=== PATIENT | male | born 1980 | race Caucasian/White ===

== ENCOUNTER 2024-07-27 13:23 | Outpatient (REF) | payer OTHER, SELFPAY ==
--- OUTSIDE RECORDS SUMMARY | 2024-07-29 11:41 | XMS_ITS | Clinical Summary ---
Author Organization [facility] Address [address] [place] [address] Phone Care Team Providers Care Track Repair Laborer Name Role Phone Frdeo Laureano MD Primary Care Provider [phone] Encounters Date Type Department Care Team Description 06/22/2024 8:44 AM EST - 06/22/2024 11:59 PM EST Hospital Encounter [facility] Pulmonary [address] [place] [address] Shortness of breath Discharge Disposition: Home or Self Care from Last 3 Months Medical History Medical History Date Comments Family history of cardiovascular disease DX:Family history of cardiovascular disease Essential hypertension DX:Essent ial hypertension Hyperlipidemia DX:Hyperlipidemi a Family History Medical History Relation Name Comments Coronary artery disease Father Diabetes Father Relation Name Status Comments Father Alive Social History Tobacco Use Types Packs/Day Years Used Date Smoking Tobacco: Never Smokeless Tobacco: Never Alcohol Use Standard Drinks/Week Comments Yes 0 (1 standard drink = 0.6 oz pur e alcohol) Sex and Gender Information Value Date Recorded Sex Assigned at Not on file Legal Sex Male 12:14 PM EST Gender Identity Not on file Sexual Orientation Not on file Obstetrics History Last Filed Vital Signs Vital Sign Reading Time Taken Comments Blood Pressure 130/80 08/13/2022 9:17 AM EST Sitting L Arm Pulse 59 08/13/2022 9:17 AM EST Temperature - - Respiratory Rate - - Oxygen Saturation - - Inhaled Oxygen Concentration - - Weight 89.7 kg (197 lb 12.8 oz) 08/13/2022 9:17 AM EST Height 182.9 cm (6') 08/13/2022 9:17 AM EST Body Mass Index 26.83 08/13/2022 9:17 AM EST Plan of Treatment Health Maintenance Due Date Last Done Comments DTaP,Tdap,and Td Vaccines (1 - Tdap) 10/16/1999 Hepatitis B Vaccines (1 of 3 - 19+ 3-dose series) 10/16/1999 Cholesterol Screening (Lipid Panel) 05/15/2022 Depression Screening 05/15/2022 HIV Screening 05/15/2022 Hepatitis C Screening 05/15/2022 Social Influencers of Health Screening 05/15/2022 COVID-19 Vaccine ( - 2023-2 5 season) 2024 Influenza Vaccine (#1) 2024 HIB Vaccines Aged Out No longer eligi ble based on patient's age to complete this topic HPV Vaccines Aged Out No longer eligi ble based on patient's age to complete this topic Hepatitis A Vaccines Aged Out No long er eligible based on patient's age to complete this topic IPV Vaccines Aged Out No longer eligi ble based on patient's age to complete this topic MMR Vaccines Aged Out No longer eligi ble based on patient's age to complete this topic Meningococcal ACWY Vaccine Aged Out N o longer eligible based on patient's age to complete this topic Meningococcal B Vacine Aged Out No lo nger eligible based on patient's age to complete this topic Pneumococcal Vaccine: Pediat rics (0 to 5 Years) and At-Risk Patients (6 to 64 Years) Aged Out No longer eligible b ased on patient's age to complete this topic RSV Immunization Patients Un eda 20 months Aged Out No longer eligible b ased on patient's age to complete this topic Varicella Vaccines Aged Out No longer eligible based on patient's age to complete this topic Procedures Procedure Name Priority Date/Time Associated Diagnosis Comments HC SPIROMETRY BRONCHODILATION RESPONSIVENESS PRE/POST BRONCHODILATOR ADMINISTRATION Routine 06/22/2024 9:36 AM EST Shortness of breath from Last 3 Months Results * Pulmonary function testing: Carbon Monoxide Diffusing Capacity, Nitrogen Wash Out, Spirometry with Bronchodilator (06/22/2024 9:36 AM EST) Impressions Carol Jolley MD - 06/22/2024 9:44 AM EST FEV1/FVC 70%. FEV1 3.15 at 81%. FVC 86%. No bronchodilator response. ?? TLC 80%. RV 57%. DLCO 99%. Mild obstruction. ??No restriction. ??No decrease in diff Fredo Laureano MD PFT ORDERABLES Final Result from Last [address] [place] [address] Care Teams Track Repair Laborer Relationship Specialty Start Date End Date Fredo Laureano MD [address] [place] [address] PCP - General Internal Medicine 06/22/24
== END 2024-07-27 13:24 | disposition home or self-care (01) ==
LOC: HO.LAB 13:23
PROVIDERS: PCP Internal Medicine; Visit Provider Hospitalist
DX: Z13.89 Encounter for screening for other disorder (principal)

== ENCOUNTER → 2024-07-27 14:17 | Outpatient (AMB) | payer OTHER, SELFPAY ==
--- NOTE | 2024-07-27 13:26 | MHC.OFFVIS ---
Vital Signs 07/27/24 13:29 Height 6 ft 1 in Weight 218 lb 4.122 oz BMI 28.8 BP 130/82 Blood Pressure Location Rt brachial Position Sitting Pulse 69 Pulse Source Pulse Oximeter Pulse Oximetry (%) 96 Oxygen Delivery Method Room Air Intake Visit Reasons: Asthma Allergies No Known Allergies Allergy (Verified 07/27/24 13:32) HPI Comments Details: The patient is here for pulmonary evaluation. The patient is a 43-year-old gentleman with history of childhood asthma who apparently was in his usual state health until last winter when he was exposed to a fire extinguisher discharge. He had difficulty breathing for couple weeks after that. The night he noticed that he was not doing as well with the breathing. The patient has a rescue inhaler. Back in September he started developing worsening chest tightness and wheezing. He had a chest x-ray which I personally reviewed without any acute disease. He was given prednisone. Also albuterol. Recently he was started on Symbicort which she seems to be tolerating well although did getting some hoarseness that bothersome specially at work. As far as other exposures he does have ducts in his backyard. In addition to that the patient does working a somnolent and has significant amount of exposure throughout the day. Primarily working with local [employer] and hard[employer]. Not so much exotic [employer]. [facility] Medical History (Updated 07/27/24 @ 23:05 by Gregg Borjas MD) Chronic rhinitis Reactive airways dysfunction syndrome Asthma Allergies Social History (Updated 07/27/24 @ 13:32 by Aislinn Oliva CMA) Patient Tobacco Use Status: Never used Tobacco Review of Systems Const Reports daytime sleepiness and Reports snoring Eyes Reports no additional complaints ENT Reports nasal congestion and Reports nasal discharge Resp Reports cough, Reports snoring and Reports wheezing GI Reports no additional complaints Musc Reports no additional complaints Skin/Breast Denies rash Neuro Reports no additional complaints Endo Reports no additional complaints Guillermo/Lymph Reports no additional complaints Aller/Immun Reports wheezing Physical Exam Vital Signs: Last Vital Signs Pulse 69 07/27/24 13:29 BP 130/82 07/27/24 13:29 Pulse Ox 96 07/27/24 13:29 Oxygen Delivery Method Room Air 07/27/24 13:29 BMI result Body Mass Index 28.8 Const General: comfortable Neck Neck: Yes supple Chest Chest palpation & inspection: normal inspection of the chest Resp Effort & Inspection: normal respiratory effort Auscultation: wheezes and diminished lung sounds Cardio Heart sounds: S1 normal heart sound present and S2 normal heart sound present GI Palpation (GI): Soft to palpation Skin General skin exam: no rashes or lesions noted Extrem General: Yes no clubbing, cyanosis or edema Assessment & Plan Assessment & Plan (1) KATRIN (obstructive sleep apnea): Code(s): G47.33 - Obstructive sleep apnea (adult) (pediatric) Category: Medical (2) Reactive airways dysfunction syndrome: Code(s): J68.3 - Other acute and subacute respiratory conditions due to chemicals, gases, fumes and vapors Category: Medical (3) Asthma: Code(s): J45.909 - Unspecified asthma, uncomplicated Category: Medical Qualifiers: Asthma severity: moderate Asthma persistence: persistent Asthma complication type: uncomplicated Qualified Code(s): J45.40 - Moderate persistent asthma, uncomplicated (4) Allergies: Code(s): T78.40XA - Allergy, unspecified, initial encounter Category: Medical Qualifiers: Encounter type: initial encounter Qualified Code(s): T78.40XA - Allergy, unspecified, initial encounter (5) Chronic rhinitis: Code(s): J31.0 - Chronic rhinitis Category: Medical Plan continue Symbicort, will add Spacer Start Singulair PM BO as needed Bloodwork and allergy testing Alpha 1 testitng CXR non diagnsotic, consider CT chest consider home PSG F/U 2 months Orders: Orders Immunoglobulins,IgG IgA IgM Today G47.33 - Obstructive sleep apnea (adult) (pediatric), J31.0 - Chronic rhinitis, J45.909 - Unspecified asthma, uncomplicated, J68.3 - Other acute and subacute respiratory conditions due to chemicals, gases, fumes and vapors, T78.40XA - Allergy, unspecified, initial encounter Immunoglobulin E Today G47.33 - Obstructive sleep apnea (adult) (pediatric), J31.0 - Chronic rhinitis, J45.909 - Unspecified asthma, uncomplicated, J68.3 - Other acute and subacute respiratory conditions due to chemicals, gases, fumes and vapors, T78.40XA - Allergy, unspecified, initial encounter Hypersensitive Pneumonitis Prf Today G47.33 - Obstructive sleep apnea (adult) (pediatric), J31.0 - Chronic rhinitis, J45.909 - Unspecified asthma, uncomplicated, J68.3 - Other acute and subacute respiratory conditions due to chemicals, gases, fumes and vapors, R91.8 - Other nonspecific abnormal finding of lung field, T78.40XA - Allergy, unspecified, initial encounter Alpha 1 Anti-trypsin Today G47.33 - Obstructive sleep apnea (adult) (pediatric), J31.0 - Chronic rhinitis, J45.909 - Unspecified asthma, uncomplicated, J68.3 - Other acute and subacute respiratory conditions due to chemicals, gases, fumes and vapors, T78.40XA - Allergy, unspecified, initial encounter Complete Blood Count Auto Diff Today G47.33 - Obstructive sleep apnea (adult) (pediatric), J31.0 - Chronic rhinitis, J45.909 - Unspecified asthma, uncomplicated, J68.3 - Other acute and subacute respiratory conditions due to chemicals, gases, fumes and vapors, T78.40XA - Allergy, unspecified, initial encounter Resp Allergy Profile Region I Today G47.33 - Obstructive sleep apnea (adult) (pediatric), J31.0 - Chronic rhinitis, J45.909 - Unspecified asthma, uncomplicated, J68.3 - Other acute and subacute respiratory conditions due to chemicals, gases, fumes and vapors, R91.1 - Solitary pulmonary nodule, T78.40XA - Allergy, unspecified, initial encounter Basic Metabolic Panel Today G47.33 - Obstructive sleep apnea (adult) (pediatric), J31.0 - Chronic rhinitis, J45.909 - Unspecified asthma, uncomplicated, J68.3 - Other acute and subacute respiratory conditions due to chemicals, gases, fumes and vapors, T78.40XA - Allergy, unspecified, initial encounter Erythrocyte Sedimentation Rate Today G47.33 - Obstructive sleep apnea (adult) (pediatric), J31.0 - Chronic rhinitis, J45.909 - Unspecified asthma, uncomplicated, J68.3 - Other acute and subacute respiratory conditions due to chemicals, gases, fumes and vapors, T78.40XA - Allergy, unspecified, initial encounter Medications: New montelukast (Singulair) 10 mg PO BEDTIME 30 tabs 11RF 30 days J45.909 - Unspecified asthma, uncomplicated inhalational spacing device (Aerochamber MV spacer) As directed 1 ea 0RF Coding Level of Care Code New Pt Level 4 (64558) Diagnoses KATRIN (obstructive sleep apnea) G47.33 Reactive airways dysfunction syndrome J68.3 Moderate persistent asthma without complication J45.40 Asthma severity: moderate Asthma persistence: persistent Asthma complication type: uncomplicated Allergy, initial encounter T78.40XA Encounter type: initial encounter Chronic rhinitis J31.0 Time Spent (min) 60
[2024-07-27 13:29] VITALS: BP 130/82; PULSE 69; O2SAT 96; BMI 28.8
== END | disposition home or self-care (01) ==
PROVIDERS: PCP Internal Medicine; Visit Provider Hospitalist
DX: G47.33 Obstructive sleep apnea (adult) (pediatric) (principal); J68.3 Other acute and subacute respiratory conditions due to chemicals, gases, fumes and vapors; J45.40 Moderate persistent asthma, uncomplicated; T78.40XA Allergy, unspecified, initial encounter; J31.0 Chronic rhinitis
CPT/HCPCS: 99204

== ENCOUNTER 2024-07-29 10:10 | Outpatient (REF) | payer OTHER, SELFPAY ==
[2024-07-29 10:23] LABS: MANUAL DIFF FLAG NO
[2024-07-29 10:54] LABS: Basophils Percent Auto 0.4 % (0-2); Eosinophils Absolute Auto 0.2 X10*3/uL (0.0-0.4); Eosinophils Percent Auto 3.6 % (0-4); Hematocrit 43.7 % (42.0-52.0); Hemoglobin 14.5 g/dl (14.0-18.0); Imm Gran Abs Auto 0.01 X10*3/uL (0.00-0.03); Imm Gran Pct Auto 0.2 % (0.0-0.4); Lymphocytes Absolute Auto 1.9 X10*3/uL (1.2-4.9); Lymphocytes Percent Auto 37.6 % (20-40); Mean Corpuscular HGB Conc 33.2 g/dl (31.0-36.0); Mean Corpuscular Volume 99.5 fL (80.0-98.0); Monocytes Absolute Auto 0.4 X10*3/uL (0.1-1.2); Neutrophils Absolute Auto 2.6 x10*3/uL (2.0-8.3); Neutrophils Percent Auto 51.2 % (45-73); Platelet Count 167 X10*3/uL (160-400); Red Blood Count 4.39 X10*6/uL (4.60-5.80); Red Cell Distribution Width 12.7 % (11.0-16.0)
[2024-07-29 11:13] LABS: Anion Gap 11 (12-20); Blood Urea Nitrogen 18 mg/dL (9-16); Calcium 9.5 mg/dL (8.4-10.2); Carbon Dioxide 27 mmol/L (22-29); Chloride 106 mmol/L (96-108); Estimated Glomerular Filt Rate > 60; Glucose Random 106 mg/dL (60-115); Potassium 4.4 mmol/L (3.3-5.1); Sodium 140 mmol/L (135-145)
[2024-07-29 11:34] LABS: Erythrocyte Sedimentation Rate 2 MM/HR (0-15)
--- OUTSIDE RECORDS SUMMARY | 2024-07-29 12:03 | XMS_ITS | Clinical Summary ---
Author Organization [facility] Address [address] [place] [address] Phone Care Team Providers Care Drawing Machine Operator Name Role Phone Fredo Laureano MD Primary Care Provider [phone] Encounters Date Type Department Care Team Description 06/22/2024 8:44 AM EST - 06/22/2024 11:59 PM EST Hospital Encounter [facility] Pulmonary [address] [place] [address] Shortness of breath Discharge Disposition: [...] Final Result from Last [address] [place] [place] [address] Care Teams Drawing Machine Operator Relationship Specialty Start Date End Date Fredo Laureano MD [address] [place] [address] PCP - General Internal Medicine 06/22/24
[2024-07-30 09:04] LABS: Alpha 1 Anti-trypsin 118 mg/dL (83-199)
[2024-08-04 10:58] LABS: Class Alternaria alternata 0; Class Aspergillus fumigatus 0; Class Bermuda Grass 0; Class Birch 0; Class Cat Dander 0; Class Cladosporium herbarum 0; Class Cockroach 0/1; Class Common Ragweed 0; Class Cottonwood 0; Class Derm. pterony 1; Class Dermatophagoides farinae 1; Class Dog Dander 0; Class Elm 0; Class Maple Box Elder 0; Class Mountain Cedar 0; Class Mouse Urine Protein 0; Class Mugwort 0; Class Oak 0; Class Penicillium crysogenum 0; Class Rough Pigweed 0; Class Sheep Sorrel 0; Class Sycamore 0; Class Timothy Grass 0; Class Walnut Tree 0; Class White Ash 0; Class White Mulberry 0; D001 IgE D pteronyssinus 0.51 kU/L; D002 - IgE D farinae 0.46 kU/L; E001 - IgE Cat Dander <0.10 kU/L; E005 - IgE Dog Dander <0.10 kU/L; E072-IgE Mouse Urine <0.10 kU/L; G002 IgE Bermuda Grass <0.10 kU/L; G006 - IgE Timothy Grass <0.10 kU/L; I006-IgE Cockroach, German 0.12 kU/L; Immunoglobulin E 65 kU/L (<OR=114); M001 IgE Penicillium chrysogen <0.10 kU/L; M002 - IgE Cladosporium herbar <0.10 kU/L; M003 - IgE Aspergillus fumigat <0.10 kU/L; M006 - IgE Alternaria alternat <0.10 kU/L; T001 IgE Maple/Box Elder <0.10 kU/L; T003 IgE Common Silver Birch <0.10 kU/L; T006 - IgE Cedar, Mountain <0.10 kU/L; T007 - IgE Oak, White <0.10 kU/L; T008 IgE Elm, American <0.10 kU/L; T010 - IgE Walnut <0.10 kU/L; T011 - IgE Maple Leaf Sycamore <0.10 kU/L; T014 - IgE Cottonwood <0.10 kU/L; T015 - IgE Ash, White <0.10 kU/L; T070 - IgE White Mulberry <0.10 kU/L; W001 - IgE Ragweed, Short <0.10 kU/L; W006 - IgE Mugwort <0.10 kU/L; W014 IgE Pigweed, Common <0.10 kU/L; W018 IgE Sheep Sorrel <0.10 kU/L
[2024-08-05 15:04] LABS: IgA 301 mg/dL (47-310); IgG 1380 mg/dL (600-1640); IgM 64 mg/dL (50-300)
[2024-08-06 10:59] LABS: Asperg fumigatus Precip Abs NEGATIVE (NEGATIVE); Micropoly faeni Abs NEGATIVE (NEGATIVE); Pigeon serum Abs NEGATIVE (NEGATIVE); Saccharo pora viridis Abs NEGATIVE (NEGATIVE); Thermo candidus Abs NEGATIVE (NEGATIVE); Thermoa vulgaris #1 NEGATIVE (NEGATIVE)
== END 2024-07-29 10:11 | disposition home or self-care (01) ==
LOC: HO.LAB 10:10
PROVIDERS: Visit Provider Hospitalist
DX: J31.0 Chronic rhinitis (principal); R91.1 Solitary pulmonary nodule; G47.33 Obstructive sleep apnea (adult) (pediatric); J68.3 Other acute and subacute respiratory conditions due to chemicals, gases, fumes and vapors; J45.909 Unspecified asthma, uncomplicated; R91.8 Other nonspecific abnormal finding of lung field
CPT/HCPCS: 36415; 80048; 82103; 82784; 82785; 85025; 85652; 86003; 86331; 86606; 86609

== ENCOUNTER 2024-09-16 08:30 | Outpatient (AMB) | payer OTHER, SELFPAY ==
--- NOTE | 2024-09-16 08:31 | A.OFFVIS_ITS ---
Vital Signs 09/16/24 08:32 Height 6 ft 1 in Weight 220 lb 7.396 oz BMI 29.1 BP 118/76 Blood Pressure Location Rt brachial Position Sitting Pulse 60 Pulse Source Pulse Oximeter Pulse Oximetry (%) 99 Oxygen Delivery Method Room Air Intake Visit Reasons: Asthma Allergies No Known Allergies Allergy (Verified 09/16/24 08:35) HPI Comments Details: The patient is a 43-year-old gentleman with history of childhood asthma who apparently was in his usual state health until last winter when he was exposed to a fire extinguisher discharge. He had difficulty breathing for couple weeks after that. The night he noticed that he was not doing as well with the breathing. The patient has a rescue inhaler. Back in September he started developing worsening chest tightness and wheezing. He had a chest x-ray which I personally reviewed without any acute disease. He was given prednisone. Also albuterol. Recently he was started on Symbicort which she seems to be tolerating well although did getting some hoarseness that bothersome specially at work. As far as other exposures he does have ducts in his backyard. In addition to that the patient does working a somnolent and has significant amount of exposure throughout the day. Primarily working with local [employer] and hard[employer]. Not so much exotic [employer]. 09/16/2024 the patient is here for pulmonary follow-up visit. Overall the patient has been doing well. He has been tolerating the Symbicort with spacer and also the addition of the Singulair. He has not been using his rescue inhalers often. Although he still uses it. He did have 1 situation where his daughter was having surgery and he did get a little anxious and stressed and he was using his inhaler frequently. Unfortunately since he has been feeling better he thought about smoking marijuana. I did emphasize importance to avoid any inhaled toxins her feels that can potentially hinder his respiratory and airway capacity. His respiratory exam is reassuring. We did look at his blood work. His allergy testing only positive for dust mites. He can consider getting some budding for that. In addition to that the rest of blood work was reassuring. Today we did do an alpha-1 test. Will see what his results come out to be. For now the patient is doing well I did provide him with a peak flow meter so he can assess his airway capacity prior to using his rescue inhaler whenever he feels short of breath. He did get a peak flow of 600 mL/sec. This is very good. Therefore, he will monitor closely peak flows. If he is noticing that he is using his rescue inhaler more than 3 times a week or if he has noticing that his peak flow meters are going down he can always call and I can send him a long-acting muscarinic antagonist to take along with Symbicort. Otherwise patient will follow-up in 6-8 months. [facility] Medical History (Updated 07/27/24 @ 23:05 by Gregg Borjas MD) Chronic rhinitis Reactive airways dysfunction syndrome Asthma Allergies Social History Patient Tobacco Use Status: Never used Tobacco Review of Systems Const Reports daytime sleepiness and Reports snoring Eyes Reports no additional complaints ENT Reports nasal congestion and Reports nasal discharge Resp Reports cough, Reports snoring and Reports wheezing GI Reports no additional complaints Musc Reports no additional complaints Skin/Breast Denies rash Neuro Reports no additional complaints Endo Reports no additional complaints Guillermo/Lymph Reports no additional complaints Aller/Immun Reports wheezing Physical Exam Vital Signs: Last Vital Signs Pulse 60 09/16/24 08:32 BP 118/76 09/16/24 08:32 Pulse Ox 99 09/16/24 08:32 Oxygen Delivery Method Room Air 09/16/24 08:32 BMI result Body Mass Index 29.1 Const General: comfortable Neck Neck: Yes supple Chest Chest palpation & inspection: normal inspection of the chest Resp Effort & Inspection: normal respiratory effort Auscultation: clear to auscultation bilaterally and no wheezes Cardio Heart sounds: S1 normal heart sound present and S2 normal heart sound present GI Palpation (GI): Soft to palpation Skin General skin exam: no rashes or lesions noted Extrem General: Yes no clubbing, cyanosis or edema Assessment & Plan Assessment & Plan (1) KATRIN (obstructive sleep apnea): Code(s): G47.33 - Obstructive sleep apnea (adult) (pediatric) Category: Medical (2) Reactive airways dysfunction syndrome: Code(s): J68.3 - Other acute and subacute respiratory conditions due to chemicals, gases, fumes and vapors Category: Medical (3) Asthma: Code(s): J45.909 - Unspecified asthma, uncomplicated Category: Medical Qualifiers: Asthma complication type: uncomplicated Asthma persistence: persistent Asthma severity: moderate Qualified Code(s): J45.40 - Moderate persistent asthma, uncomplicated (4) Allergies: Code(s): T78.40XA - Allergy, unspecified, initial encounter Category: Medical Qualifiers: Encounter type: initial encounter Qualified Code(s): T78.40XA - Allergy, unspecified, initial encounter (5) Chronic rhinitis: Code(s): J31.0 - Chronic rhinitis Category: Medical Plan continue Symbicort, Spacer continue Singulair PM BO as needed Alpha 1 testitng consider home PSG F/U 6 months Coding Level of Care Code Est Pt Level 4 (89395) Diagnoses KATRIN (obstructive sleep apnea) G47.33 Reactive airways dysfunction syndrome J68.3 Moderate persistent asthma without complication J45.40 Asthma complication type: uncomplicated Asthma persistence: persistent Asthma severity: moderate Allergy, initial encounter T78.40XA Encounter type: initial encounter Chronic rhinitis J31.0 Time Spent (min) 17
[2024-09-16 08:32] VITALS: BP 118/76; PULSE 60; O2SAT 99; BMI 29.1
--- OUTSIDE RECORDS SUMMARY | 2024-09-16 08:49 | XMS_ITS | Clinical Summary ---
Author Organization [facility] Address [address] [place] [address] Phone Care Team Providers Care Clinical Pharmacy Coordinator Name Role Phone Fredo Laureano MD Primary Care Provider [phone] Encounters Date Type Department Care Team Description 06/22/2024 8:44 AM EST - 06/22/2024 11:59 PM EST Hospital Encounter [facility] Pulmonary [address] [place] [address] Shortness of breath Discharge Disposition: [...] Final Result from Last [address] [place] [address] Care Teams Clinical Pharmacy Coordinator Relationship Specialty Start Date End Date Fredo Laureano MD [address] [place] [address] PCP - General Internal Medicine 06/22/24
== END 2024-09-16 08:59 | disposition home or self-care (01) ==
PROVIDERS: PCP Internal Medicine; Visit Provider Hospitalist
DX: G47.33 Obstructive sleep apnea (adult) (pediatric) (principal); J68.3 Other acute and subacute respiratory conditions due to chemicals, gases, fumes and vapors; J45.40 Moderate persistent asthma, uncomplicated; T78.40XA Allergy, unspecified, initial encounter; J31.0 Chronic rhinitis
CPT/HCPCS: 99214

== ENCOUNTER 2025-03-22 08:31 | Outpatient (AMB) | payer OTHER, SELFPAY ==
--- NOTE | 2025-03-22 08:36 | MHC.OFFVIS ---
Vital Signs 03/22/25 08:37 Height 6 ft 1 in Weight 223 lb 12.307 oz BMI 29.5 BP 100/52 L Blood Pressure Location Lt brachial Position Sitting Pulse 61 Pulse Source Pulse Oximeter Pulse Oximetry (%) 96 Oxygen Delivery Method Room Air Intake Visit Reasons: Asthma Production Support Consultant Required: No Allergies No Known Allergies Allergy (Verified 03/22/25 08:40) HPI Comments Details: The patient is a 44-year-old gentleman with history of childhood asthma who apparently was in his usual state health until last winter when he was exposed to a fire extinguisher discharge. He had difficulty breathing for couple weeks after that. The night he noticed that he was not doing as well with the breathing. The patient has a rescue inhaler. Back in September he started developing worsening chest tightness and wheezing. He had a chest x-ray which I personally reviewed without any acute disease. He was given prednisone. Also albuterol. Recently he was started on Symbicort which she seems to be tolerating well although did getting some hoarseness that bothersome specially at work. As far as other exposures he does have ducts in his backyard. In addition to that the patient does working a somnolent and has significant amount of exposure throughout the day. Primarily working with local [employer] and hard[employer]. Not so much exotic [employer]. 09/16/2024 the patient is here for pulmonary follow-up visit. Overall the patient has been doing well. He has been tolerating the Symbicort with spacer and also the addition of the Singulair. He has not been using his rescue inhalers often. Although he still uses it. He did have 1 situation where his daughter was having surgery and he did get a little anxious and stressed and he was using his inhaler frequently. Unfortunately since he has been feeling better he thought about smoking marijuana. I did emphasize importance to avoid any inhaled toxins her feels that can potentially hinder his respiratory and airway capacity. His respiratory exam is reassuring. We did look at his blood work. His allergy testing only positive for dust mites. He can consider getting some budding for that. In addition to that the rest of blood work was reassuring. Today we did do an alpha-1 test. Will see what his results come out to be. For now the patient is doing well I did provide him with a peak flow meter so he can assess his airway capacity prior to using his rescue inhaler whenever he feels short of breath. He did get a peak flow of 600 mL/sec. This is very good. Therefore, he will monitor closely peak flows. If he is noticing that he is using his rescue inhaler more than 3 times a week or if he has noticing that his peak flow meters are going down he can always call and I can send him a long-acting muscarinic antagonist to take along with Symbicort. Otherwise patient will follow-up in 6-8 months. 03/22/2025 the patient is here for pulmonary follow-up visit. Overall the patient is doing well. He continues uses Symbicort twice a day. Has not had to use his rescue inhaler. Has continue with the Singulair. His alpha-1 testing was normal. The patient did have a sleep study done as [facility]. She was diagnosed with [id number]-[id number] sleep apnea. He is going to start CPAP soon. The patient does have significant snoring. In the CPAP will be very effective and helpful. No recent imaging to review. His last chest x-ray was back in 2023 without any acute disease. The patient does have exposures. Therefore have him come back in a year with a chest x-ray. If he has not issues prior to this she can always call for an earlier assessment. [facility] Medical History (Updated 07/27/24 @ 23:05 by Gregg Borjas MD) Chronic rhinitis Reactive airways dysfunction syndrome Asthma Allergies Social History Patient Tobacco Use Status: Never used Tobacco Review of Systems Const Reports daytime sleepiness and Reports snoring Eyes Reports no additional complaints ENT Reports nasal congestion and Reports nasal discharge Resp Reports cough, Reports snoring and Reports wheezing GI Reports no additional complaints Musc Reports no additional complaints Skin/Breast Denies rash Neuro Reports no additional complaints Endo Reports no additional complaints Guillermo/Lymph Reports no additional complaints Aller/Immun Reports wheezing Physical Exam Vital Signs: Last Vital Signs Pulse 61 03/22/25 08:37 BP 100/52 L 03/22/25 08:37 Pulse Ox 96 03/22/25 08:37 Oxygen Delivery Method Room Air 03/22/25 08:37 BMI result Body Mass Index 29.5 Const General: comfortable Neck Neck: Yes supple Chest Chest palpation & inspection: normal inspection of the chest Resp Effort & Inspection: normal respiratory effort Auscultation: clear to auscultation bilaterally and no wheezes Cardio Heart sounds: S1 normal heart sound present and S2 normal heart sound present GI Palpation (GI): Soft to palpation Skin General skin exam: no rashes or lesions noted Extrem General: Yes no clubbing, cyanosis or edema Assessment & Plan Assessment & Plan (1) KATRIN (obstructive sleep apnea): Code(s): G47.33 - Obstructive sleep apnea (adult) (pediatric) Category: Medical (2) Reactive airways dysfunction syndrome: Code(s): J68.3 - Other acute and subacute respiratory conditions due to chemicals, gases, fumes and vapors Category: Medical (3) Asthma: Code(s): J45.909 - Unspecified asthma, uncomplicated Category: Medical Qualifiers: Asthma complication type: uncomplicated Asthma persistence: persistent Asthma severity: moderate Qualified Code(s): J45.40 - Moderate persistent asthma, uncomplicated (4) Allergies: Code(s): T78.40XA - Allergy, unspecified, initial encounter Category: Medical Qualifiers: Encounter type: initial encounter Qualified Code(s): T78.40XA - Allergy, unspecified, initial encounter (5) Chronic rhinitis: Code(s): J31.0 - Chronic rhinitis Category: Medical Plan continue Symbicort, Spacer continue Singulair PM BO as needed Alpha 1 testitng, normal start APAP with SMS CXR F/U 12 months Orders: Orders XR chest 2V Today J45.40 - Moderate persistent asthma, uncomplicated Coding Level of Care Code Est Pt Level 4 (20941) Diagnoses KATRIN (obstructive sleep apnea) G47.33 Reactive airways dysfunction syndrome J68.3 Moderate persistent asthma without complication J45.40 Asthma complication type: uncomplicated Asthma persistence: persistent Asthma severity: moderate Allergy, initial encounter T78.40XA Encounter type: initial encounter Chronic rhinitis J31.0 Time Spent (min) 16
[2025-03-22 08:37] VITALS: BP 100/52; PULSE 61; O2SAT 96; BMI 29.5
--- OUTSIDE RECORDS SUMMARY | 2025-03-22 09:07 | XMS_ITS | Clinical Summary ---
Author Organization [facility] Address [address] [place] [phone] Phone Care Team Providers Care Expanded Function Dental Assistant Name Role Phone Fredo Laureano MD Primary Care Provider + [phone] Allergies No known active allergies Medications metoprolol succinate (TOPROL XL) 25 MG 24 hr tablet 0 Active sildenafil (VIAGRA) 100 mg tablet Take 100 mg by mouth daily as needed for erectile dysfunction. Reported on 05/21/2016 Active therapeutic multivitamin tablet Take 1 tablet by mouth daily. Reported on 05/21/2016 Active omega 6-fff-bmt-fish oil 1,000 mg (120 mg-180 mg) Cap Take 1 capsule by mouth daily. Reported on 05/21/2016 Active acetaminophen (TYLENOL) 325 mg tablet Take 2 tablets (650 mg total) by mouth every 4 (four) hours as needed for mild pain. 6 Active docusate sodium (COLACE) 100 MG capsule Take 1 capsule (100 mg total) by mouth 2 (two) times a day. 60 capsule 6 Active oxyCODONE 5 MG immediate release tablet Take 1-2 tablets (5-10 mg total) by mouth every 4 (four) hours as needed for moderate pain. Partial fill ok at patient request. 60 tablet 6 Active Active Problems Problem Noted Date Diagnosed Date Recurrent anterior dislocation of shoulder Social History Tobacco Use Types Packs/Day Years Used Date Smoking Tobacco: Never Education Answer Date Recorded Are you interested in more education? Not on tiana e 10/12/2022 Are you concerned about learning? Not on file 10/12/2022 No 10/12/2022 No 10/12/2022 Digital Access Answer Date Recorded No 11/12/2022 No 11/12/2022 No 11/12/2022 Reliable internet access at home? Not on file 11/12/2022 Device with a working camera? Not on file Sex and Gender Information Value Date Recorded Sex Assigned at Not on file Legal Sex Male 9:32 AM EDT Gender Identity Not on file Sexual Orientation Not on file Last Filed Vital Signs Vital Sign Reading Time Taken Comments Blood Pressure 157/90 05/21/2016 12:33 PM EST Pulse 66 05/21/2016 12:33 PM EST Temperature 36.7 C (98 F) 05/21/2016 12:33 PM EST Respiratory Rate 20 05/21/2016 12:33 PM EST Oxygen Saturation 99% 05/21/2016 12:33 PM EST Inhaled Oxygen Concentration - - Weight 72.6 kg (160 lb) 05/15/2016 8:16 AM EST Height 180.3 cm (5' 11 ) 05/15/2016 8:16 AM EST Body Mass Index 22.32 05/15/2016 8:16 AM EST Plan of Treatment Health Maintenance Due Date Last Done Comments Adult Td,Tdap Booster 1980 LIPID PANEL 1980 DEPRESSION SCREENING 1992 HEPATITIS C SCREENING 1998 HIV ONE-TIME SCREENING (18-6 5 YEARS) 1998 INFLUENZA VACCINE (#1) 2025 COVID-19 VACCINE (2023-2 5 season) 2025 SMOKING STATUS SCREENING (On ce After 26 Yrs) Completed 05/15/2016 HEPATITIS A VACCINES Aged Out No long er eligible based on patient's age to complete this topic HIB VACCINES Aged Out No longer eligi ble based on patient's age to complete this topic MENINGOCOCCAL VACCINES (ACWY) Aged Out No longer eligible based on patient's age to complete this topic MENINGOCOCCAL VACCINES (B) Aged Out N o longer eligible based on patient's age to complete this topic PNEUMOCOCCAL VACCINES (0-49 years) Aged Out No longer eligible based on patient's age to complete this topic Medical Devices Implanted Type Area Patient Care Manager Device Identifier Shelf Expiration Date Model / Serial / Lot Screw Bone 3.5x34mm Cortex Self Tapping Fully Threaded Hex Head S/S Ea - [id number] Implanted:Qty: 2 on 05/21/2016 by Jacques Frey Jp, MD at [facility] NOD[employer] Right: Shoulder SYNTHES [id number] / / Insurance CROSS OUT OF STATE PPO BLUE CROSS OUT OF STATE PPO BLUE CROSS OUT OF STATE PPO OUT OF [facility] PPO OUT OF [facility] PPO OUT [facility] PPO BLUE CROSS OUT OF STATE PPO BLUE CROSS OUT OF STATE PPO BLUE CROSS OUT OF STATE PPO Care Teams Expanded Function Dental Assistant Relationship Specialty Start Date End Date Fredo Laureano MD [address] [place] [address] PCP - General Internal Medicine 02/09/16 Additional Source Comments The information contained in this document represents components of the legal health record. It is not the complete legal health record.[facility]
--- OUTSIDE RECORDS SUMMARY | 2025-03-22 09:07 | XMS_ITS | Encounter Summary ---
Author Organization [facility] Address [address] [place] [address] [place] [phone] Phone Care Team Providers Care Pencil Sorter Name Role Phone Fredo Laureano MD Primary Care Provider [phone] Encounter Details Date Type Department Care Team (Late st Contact Info) Description 05/21/2016 Procedure Pass [facility] [address] [place] [id number] Social History Tobacco Use Types Packs/Day Years Used Date Smoking Tobacco: Never Sex and Gender Information Value Date Recorded Sex Assigned at Not on file Legal Sex Male 9:32 AM EDT Gender Identity Not on file Sexual Orientation Not on file documented as of this encounter Plan of Treatment Not on file documented as of this encounter Visit Diagnoses Not on filedocumented in this encounter Care Teams Pencil Sorter Relationship Specialty Start Date End Date Fredo Laureano MD [address] [place] [address] PCP - General Internal Medicine 02/09/16 documented as of this encounter Additional Source Comments The information contained in this document represents components of the legal health record. It is not the complete legal health record.[facility]
--- OUTSIDE RECORDS SUMMARY | 2025-03-22 09:07 | XMS_ITS | Clinical Summary ---
Author Organization [facility] Address [address] [place] [address] Phone Care Team Providers Care Certified Public Accountant Name Role Phone Fredo Laureano MD Primary Care Provider [phone] Medical History Medical History Date Comments Family [...] of 3 - 19+ 3-dose series) 10/16/1999 HPV Vaccines (1 - 3-dose SCD M series) 10/16/2007 Cholesterol Screening (Lipid Panel) 05/15/2022 HIV Screening 05/15/2022 Hepatitis C Screening 05/15/2022 Social Influencers of Health Screening 05/15/2022 Depression Screening 06/17/2024 COVID-19 Vaccine (1 - 2023-2 5 season) 2025 Influenza Vaccine (#1) 2025 RSV Immunization Adult Patie nts (1 - 1-dose 75+ series) 10/16/2055 HIB Vaccines Aged Out No longer eligi [...] age to complete this topic Meningococcal B Vaccine Aged Out No l onger eligible based on patient's age to complete this topic Pneumococcal Vaccine: Pediat rics (0 to 5 Years) and At-Risk Patients (6 to 49 Years) Aged Out No longer eligible b ased on patient's age to complete this topic RSV Immunization Patients Un eda 20 months Aged Out No longer eligible b ased on patient's age to complete this topic Varicella Vaccines Aged Out No longer eligible based on patient's age to complete this topic [place] [address] Care Teams Certified Public Accountant Relationship Specialty Start Date End Date Fredo Laureano MD [address] [place] [address] PCP - General Internal Medicine 06/22/24
--- OUTSIDE RECORDS SUMMARY | 2025-03-22 09:07 | XMS_ITS | Encounter Summary ---
Author Organization [facility] Address [address] [place] [address] [place] [phone] Phone Care Team Providers Care Food Service Kitchen Supervisor Name Role Phone Fredo Laureano MD Primary Care Provider [phone] Encounter Details Date Type Department Care Team (Late st Contact Info) Description 07/26/[address], [facility] - [address], [address] [place] [id number] Social History Tobacco Use Types Packs/Day Years [...] on filedocumented in this encounter Care Teams Food Service Kitchen Supervisor Relationship Specialty Start Date End Date Fredo Laureano MD [address] [place], [place] [address] PCP - General Internal Medicine 02/09/16 documented as of this encounter Additional Source Comments The information contained in this document represents components of the legal health record. It is not the complete legal health record.[facility]
== END 2025-03-22 08:54 | disposition home or self-care (01) ==
LOC: HO.HPS 08:31
PROVIDERS: PCP Internal Medicine; Visit Provider Hospitalist
DX: G47.33 Obstructive sleep apnea (adult) (pediatric) (principal); J68.3 Other acute and subacute respiratory conditions due to chemicals, gases, fumes and vapors; J45.40 Moderate persistent asthma, uncomplicated; T78.40XA Allergy, unspecified, initial encounter; J31.0 Chronic rhinitis
CPT/HCPCS: 99214